=== PATIENT | female | born 1940 | race Caucasian/White ===

== ENCOUNTER 2024-04-14 15:20 | Day surgery (SDC) | payer MEDICARE, SELFPAY ==
[2024-04-14] VITALS (12 sets, daily range): BP systolic 74–135; BP diastolic 33–77; BMI 25.5
--- NOTE | 2024-04-14 15:06 | ED.GENMED ---
History of Present Illness
General
Chief Complaint: Chest Pain
Source: patient and ambulance crew
Exam Limitations: none
Time Seen by Provider: 04/14/24 15:06
History of Present Illness
History of Present Illness:
83-year-old female sudden onset of chest pain upper chest into her neck about 30 minutes prior to ER arrival. Patient does note is slightly worse with breathing. No back pain shearing pain no diaphoresis or nausea. No history of same. Symptoms
are moderate and ongoing in nature. Prehospital EKG was suspicious for a early STEMI. STEMI alert was called. Cardiology invasive was contacted
Review of Systems
Review of Systems
All Other Systems: Not applicable
Constitutional: Denies fever
Respiratory: Denies trouble breathing
Cardiac: Denies syncope
ABD/GI: Denies bloody stools or black stools
Phy Exam
Physical Exam
Physical Exam:
GENERAL: Alert and oriented in no apparent distress
EYE: Orbits normal.
NECK: Supple, no significant adenopathy.
ENT: Pharynx without erythema
CARDIAC: Regular rate and rhythm without any obvious murmurs.
LUNGS: Clear breath sounds,normal
ABDOMEN: Soft, without focal tenderness or distention
NEUROLOGICAL: Alert and oriented , grossly non-focal
SKIN: Warm and dry, no rash or lesion, no discoloration, skin intact.
MUSCULOSKELETAL: No edema,no deformity.Good color
PSYCH: Normal and appropriate interaction.
Scores
Heart Score for Chest Pain Patients
STEMI patient?: Yes
Course
Orders/Labs/Results
Orders:
Orders
04/14/24 Lunch
Cholesterol Lowering
At Your Request: Full Participation
Cholesterol Lowering: Sodium, 2 Gram
04/14/24 14:59
Electrocardiogram (*1) Urgent
Reason for Study: Chest Pain
EKG- Treatment ONCE
04/14/24 Dinner
Cholesterol Lowering
At Your Request: Full Participation
Cholesterol Lowering: Sodium, 2 Gram
04/14/24 15:01
Complete Blood Count/With Diff Urgent
Comprehensive Metabolic Panel Urgent
D-Dimer Urgent
Comment: D-DIMER ADDED ON BY FLOOR 4:30PM 04-14-24
PTT Urgent
Troponin I Urgent
04/14/24 15:27
Aspirin Low Dose EC [Aspir Low (Enteric Coated)] 162 mg .ROUTE .STK-MED ONE
Heparin 5,000 units .ROUTE .STK-MED ONE
Ticagrelor [Brilinta] 180 mg .ROUTE .STK-MED ONE
04/14/24 15:50
Acetaminophen [Tylenol] 650 mg PO Q4HPRN PRN
Activity As Directed
Activity Level: Out of Bed- Ad Nadia
Activity Frequency: Ad Nadia
[facility] Procedure As Directed
Cardiac Cath Procedure: cardiac catheterization
Notify MD As Directed
Notify physician if: immediately for chest pain or bleeding from access site(s)
Radial Artery Hemostasis Method As Directed
Instructions:: 3 mL out at 1 hour post placement of band
3 mL out at 1 1/2 hours post placement of band
3 mL out at 2 hours post placement of band
Off at 2 1/2 hours post placement of band
If any oozing or hemotoma occurs:: re-inflate band and call provider
Site Checks As Directed
Check access site for bleeding/hematoma: Yes
Comment: on arrival, Q15min x4, Q30min x2, Q1 hr x2, Q2 hr x2, Q4 hr or per
protocol
Vascular Checks As Directed
Location: distal to access site - pulse check
Frequency: Other
Comment: on arrival, Q15min x4, Q30min x2, Q1 hr x2, Q2 hr x2, Q4 hr or per protocol
Vital Signs As Directed
Frequency: Other
Additional Instructions:: on arrival, Q15min x4, Q30min x2, Q1 hr x2, Q2 hr x2, then Q4 hr or per unit
protocol
04/14/24 16:00
0.9% Sodium Chloride 1000 ml [Nss] 1,000 ml IV 100 mls/hr
04/14/24 16:01
Electrocardiogram (*1) Routine
Reason for Study: Chest Pain
Comment: dca
04/14/24 16:04
CR Chest - 2 Views Routine
Comment: MD Kareem
Reason For Exam: dyspnea/sob
04/14/24 16:16
Echo 2D MMode Color/Doppler Routine
Reason for Study: Chest pain/ACS
Cardiology Consult: Brooke Serna
04/14/24 16:18
CRP [C-Reactive Protein] Urgent
D-Dimer Urgent
ESR [Erythrocyte Sed Rate] Urgent
04/14/24 16:24
Code Status As Directed
Resuscitation Status: Full Code
CARDIOLOGY CONSULT Routine
Consulting Provider: Brooke Serna
Was physician already notified: Yes
Ondansetron Injectable [Zofran] 4 mg IV Q6HPRN PRN
Oxycodone [Roxicodone] 5 mg PO Q4HPRN PRN
Ot Eval And Treat Routine
Pt Eval And Treat Routine
Activity Level: Ambulate
DX Deep Vein Thrombosis Video Routine
04/14/24 16:33
Change Attending Physician As Directed
Change attending physician to: saundra ramirez
04/14/24 16:34
Add On- LAB Routine
Tests Added?: d-dimer
04/14/24 16:45
Potassium Chloride [KCl] 20 meq PO NOW STA
04/14/24 17:00
Polyethylene Glycol Powder [Miralax] 17 grams PO DAILY
04/14/24 18:00
Enoxaparin Sodium [Lovenox] 40 mg SC QPM
04/14/24 21:00
Troponin I Q6H
04/15/24 03:00
Troponin I Q6H
04/15/24 06:00
Electrocardiogram (*1) IN AM
Reason for Study: Chest Pain
Comment: dca
Basic Metabolic Panel IN AM
Cardiovascular Evaluation IN AM
Complete Blood Count/No Diff IN AM
Glycohemoglobin (HgbA1c) IN AM
Magnesium IN AM
04/15/24 08:00
Metoprolol Xl [Toprol Xl] 50 mg PO DAILY
Abnormal Lab Results
04/14/24 04/14/24
15:01 15:22
WBC 12.7 H 10^3/uL
(4.8-10.8)
RDW 14.8 H %
(11.5-14.5)
Abs Immat Gran (auto) 0.1 H 10^3/uL
(0-0.05)
Absolute Neuts (auto) 10.0 H 10^3/uL
(1.4-6.5)
Absolute Monos (auto) 1.3 H 10^3/uL
(0.1-0.6)
Neutrophils % 78.1 H %
(42.2-75.2)
Lymphocytes % 10.8 L %
(20.5-51.1)
Monocytes % 10.2 H %
(1.7-9.3)
D-Dimer 0.79 H ug/mlFEU
(0.00-0.50)
Chloride 108 H mmol/L
(98-107)
BUN 20 H mg/dl
(7-17)
Glucose 124 H mg/dl
(70-99)
Calcium 8.3 L mg/dl
(8.4-10.2)
Total Protein 5.9 L g/dl
(6.3-8.2)
POC ACT Low Range 236 H Seconds
(116-155)
07/05/24 15:01
04/14/24 15:01
Vital Signs
Initial and Last Documented VS:
Initial Vital Signs
Temp Pulse Resp BP Pulse Ox
99.3 F 83 18 107/77 97
04/14/24 15:06 04/14/24 15:06 04/14/24 15:06 04/14/24 15:06 04/14/24 15:06
Last Documented Vital Signs
Temp Pulse Resp BP Pulse Ox
99.3 F 88 18 124/58 92
04/14/24 15:06 04/14/24 16:45 04/14/24 15:06 04/14/24 16:45 04/14/24 16:45
MDM/Problems Addressed
Differential Diagnosis Includes:
Initial EKG was suspicious for an early inferior AK although no reciprocal changes. Concern was enough to call a prehospital STEMI alert. Upon arrival EKG does show inferior AK. Invasive cardiology was present. Heparin Brilinta were given.
Previously given aspirin. To the [facility] for further evaluation
*Critical Care Note
Total Time (30-74mins, 75-104mins- exclusive of procedures): 10
ED Attending Note
-
Portions of this chart may have been created with voice recognition software.� Occasional wrong word or��sound alike� substitutions may have occurred due to the inherent limitations of voice recognition software.
Discharge Plan
Departure
Patient Disposition: Admit
Date of Disposition: 04/14/24
Time of Disposition: 15:08
Presentation/result/management discussed w/ accepting /DO: Kareem
Discharge Problem:
Probable acute inferior AK
Interventions
Interventions:
*Risk Screen - Suicide Last Done: 04/14/24 17:07
*ED COVID-19 Vaccine History Last Done: 04/14/24 16:57
*Nursing Disposition Last Done: 04/14/24 15:29
ED- Cardiac Assessment Last Done: 04/14/24 15:24
Discharge Date and Time
Discharge Date/Time: 04/14/24 15:30
[2024-04-14 15:09] LABS: % Basophils 0.3 % (0-2); % Eosinophils 0.1 % (0-6); % Immature Granulocytes 0.5 % (0-0.5); % Lymphocytes 10.8 % (20.5-51.1); % Monocytes 10.2 % (1.7-9.3); % Neutrophils 78.1 % (42.2-75.2); Absolute Immature Granulocytes 0.1 10^3/uL (0-0.05); Absolute Lymphocytes 1.4 10^3/uL (1.2-3.4); Absolute Monocytes 1.3 10^3/uL (0.1-0.6); Hematocrit 40.5 % (37.0-47.0); Mean Corp Hgb Conc. 34.6 g/dL (33.0-37.0); Mean Corpuscular Hgb 29.9 pg (27.0-31.0); Mean Corpuscular Volume 86.4 fL (81.0-99.0); Nucleated Red Blood Cells % 0 %; Platelet Count 283 10^3/uL (130-400); Red Blood Cell Count 4.69 10^6/uL (4.20-5.40); Red Cell Dist. Width 14.8 % (11.5-14.5); White Blood Cell Count 12.7 10^3/uL (4.8-10.8)
[2024-04-14 15:19] LABS: APTT 27.4 Sec (23.4-35.0)
[2024-04-14 15:26] LABS: ALT (SGPT) 24 U/L (0-35); AST (SGOT) 28 U/L (14-36); Albumin 3.6 g/dl (3.5-5.0); Alkaline Phosphatase 69 U/L (38-126); Blood Urea Nitrogen 20 mg/dl (7-17); Calcium 8.3 mg/dl (8.4-10.2); Carbon Dioxide 22 mmol/L (22-30); Chloride 108 mmol/L (98-107); Glucose 124 mg/dl (70-99); Potassium 3.5 mmol/L (3.5-5.1); Sodium 138 mmol/L (135-145); Total Bilirubin 0.6 mg/dl (0.2-1.3); Total Protein 5.9 g/dl (6.3-8.2); eGFR > 60.00
[2024-04-14 15:28] LABS: ACT-LR - POC 236 Seconds (116-155)
[2024-04-14 15:34] LABS: Troponin I < 0.012 ng/ml
--- NOTE | 2024-04-14 15:51 | CON.CAR ---
Consultation
Consultation Request
Requesting Provider: Brooke Serna MD
Performing Provider: JERRY Dhaliwal
Reason for Consultation: chest pain
Medical History
-
Chief Complaint: chest pain, dyspnea
History of Present Illness:
83 y/o white female, PMH sig for HTN, untreated HLD, cognitive decline, non specific bowel issues leaning toward constipation.
Non smoker, does not drink alcohol. Lives with however she states they are formerly , yet not .
Called EMS with new acute onset chest pain associated with SOB/dyspnea for over 1 hour. Initial EKG with inferior ST elevations. Given 324mg aspirin as well as 1 SLNTG with mild relief of symptoms. On arrival to ER, she was given brilinta 180mg and
heparin 4000u and brought urgently to the cath laboratory technician.
Past Medical History
Past Medical History: HTN, Hypercholesterolemia and Other (cognitive decline)
Past Surgical History: None
Social History
Tobacco: Non-Smoker
Alcohol: None
Drug: None
Personal: (legally , living together)
Family History
Family History: Reviewed & Not Pertinent
Allergies / Home Medications
Allergy/AdvReac Type Severity Reaction Status Date / Time
No Known Allergies Allergy Verified 04/14/24 15:03
�Medication �Instructions �Recorded �Confirmed �Type
metoprolol succinate 50 mg 50 mg PO DAILY 04/14/24 04/14/24 History
tablet,extended release 24 hr
Review of Systems
-
Unable to obtain full review of systems at this time due to: Acuity
History Source: Patient
All other systems: Negative unless noted
Physical Exam
Vital Signs
Temp Pulse Resp BP Pulse Ox
99.3 F 83 18 107/77 97
04/14/24 15:06 04/14/24 15:06 04/14/24 15:06 04/14/24 15:06 04/14/24 15:06
Lab Results
04/14/24 15:01
04/14/24 15:01
Troponin I < 0.012 ng/ml 04/14/24 15:01
Physical Exam
General: Well Developed, Well Nourished and Other (Deferred d/t urgent nature of cath)
Impression / Plan
-
83 y/o white female, PMH sig for HTN, untreated HLD, cognitive decline, non specific bowel issues leaning toward constipation.
Non smoker, does not drink alcohol. Lives with however she states they are formerly , yet not .
Called EMS with new acute onset chest pain associated with SOB/dyspnea for over 1 hour. Initial EKG with inferior ST elevations. Given 324mg aspirin as well as 1 SLNTG with mild relief of symptoms. On arrival to ER, she was given brilinta 180mg and
heparin 4000u and brought urgently to the cath laboratory technician.
IMPRESSION:
ACS/Chest pain
HTN
HLD
Irritable bowel/constipation
cognitive decline
PLAN:
Urgent cath today
monitor IVU on tele
trend EKG/Troponin to peak
echo in AM
monitor BP, continue metoprolol
check lipid profile in AM
Data Reviewed
-
EKG: Tracing Personally Visualized and interpreted and Discussed with Physician
Labs: Labs Reviewed by me and Discussed with Physician
Old Records: Reviewed
Total Time Spent with Patient (in minutes): 45
--- NOTE | 2024-04-14 16:06 | ITS.CL.CATH ---
[employer] - Catheterization
Cardiac Catheterization
Procedure Report:
LEFT HEART CATHETERIZATION
Date of Procedure: April 14, 2024
Referring: [facility]
PROCEDURES:
1. Left heart catheterization, coronary angiogram.
2. Ultrasound-guided access
INDICATION: Adela is a 83-year-old female with past medical history of hypertension, untreated hyperlipidemia, cognitive decline, nonspecific bowel issues, former smoker who presented to the emergency department with acute substernal chest
discomfort radiating to her neck with the pleuritic nature. At the hospital ST elevation ME was initially called with initial ECG with subtle ST elevations in lead II and aVF without reciprocal changes. Repeat EKG with ST changes in the inferior
leads without meeting clear ST elevation ME criteria, in the setting of ongoing chest discomfort decision was made to bring patient up to the heart catheterization lab to rule out any obstructive CAD. Patient received 324 mg of aspirin as well as 1
sublingual nitroglycerin and route which did not change her symptoms tremendously. In the ED prior to arrival to the heart catheterization lab she was also given 180 mg of Brilinta, and 4000 units of IV unfractionated heparin.
ACCESS: Right radial artery, 6 [place] sheath, and ultrasound-guided
HEMODYNAMICS : (mmHg)
AO (s/d) : 117/52
LV (s/d) : 125/6
LVEDP : 14
CORONARY FINDINGS
DOMINANCE: Right
LEFT MAIN: The left renal artery is a large-caliber short vessel which gives rise to the left into descending artery and the left circumflex artery. Normal coronary artery
LEFT ANTERIOR DESCENDING: The left into descending artery is a medium caliber vessel which gives rise to multiple small diagonal branches which tapers down in the mid to distal portion of the LV with the apex of the LV being supplied by the RPDA.
Normal coronary artery
CIRCUMFLEX: The left circumflex artery is a small caliber vessel which gives rise to 1 major obtuse marginal branch. Normal coronary artery.
RIGHT CORONARY ARTERY: The right coronary artery is a large-caliber, dominant vessel which gives rise to the right posterior descending artery and the right posterolateral system. Normal coronary artery. Of note the RPDA extends and wraps around
the apex
VENTRICULOGRAPHY: In a single plane MEZA projection, left ventricular systolic function is preserved with estimated LVEF of 55 to 60% without obvious wall motion abnormalities.
SEDATION: 30 minutes of procedural sedation was utilized. An independent medical laboratory technician was present to assist with and help manage the patient's level of consciousness and physiologic status.
RADIATION SUMMARY: Fluoro Time (min): 4.5, Dose (mGy): 161.5, DAP (Gy.cm2) : 11.0
Closure Device: Vascular band over right radial artery, 8 cc of air
CONCLUSIONS
1. No obstructive coronary artery disease.
2. In a single plane MEZA projection, left ventricular systolic function is preserved with estimated LVEF of 55 to 60% without obvious wall motion abnormalities.
3. Mildly elevated LVEDP at 14 mmHg.
RECOMMENDATIONS
1. Wean radial band per protocol.
2. Admit to general medicine for workup and management of pleuritic chest pain.
3. Management of cardiovascular risk factors
Brooke Serna MD, FACC, [facility]
--- NOTE | 2024-04-14 16:13 | HPS.HSE ---
Family Physician
-
Family Physician: NO INTERVIEW UNKNOWN
Chief Complaint
-
Chest pain
History of Present Illness
83-year-old female with a past medical history of hypertension, hyperlipidemia, and cognitive impairment presented to the ER earlier this afternoon for chest pain. Prehospital EKG was suspicious for early STEMI. She was seen urgently by invasive
cardiology, the EKG in the hospital did not meet STEMI. However she was having ongoing chest pain, therefore urgent cardiac catheterization was performed.
Currently, she denies chest pain. States she is still coming out of sedation. She is not able to provide any history. She cannot even tell me the name of the facility where she resides.
Medical History
Past Medical History
Past Medical History: Reports HTN, Hypercholesterolemia and Other
Additional Past Medical History:
Cognitive decline
Past Surgical History: Reports Tonsilectomy
Social History
Tobacco: Former Smoker
Alcohol: Occasional
Drug: None
Family History
Family History: Not pertinent
Allergies / Home Medications
Allergies reflects when Allergies were last updated in [facility].
Home Medications with original date entered in [facility]
Allergy/Medication List:
Allergies
Allergy/AdvReac Type Severity Reaction Status Date / Time
No Known Allergies Allergy Verified 04/14/24 15:03
Home Medications Table - record
�Medication �Instructions �Recorded �Confirmed
metoprolol succinate 50 mg 50 mg PO DAILY 04/14/24 04/14/24
tablet,extended release 24 hr
Review of Systems
-
A 12 point ROS was completed and negative except as noted: Yes
Physical Exam
Vital Signs
Vital Signs
Temp Pulse Resp BP Pulse Ox
99.3 F 83 18 107/77 97
04/14/24 15:06 04/14/24 15:06 04/14/24 15:06 04/14/24 15:06 04/14/24 15:06
Physical Exam
General: Well Developed, Well Nourished and No Apparent Distress
HEENT: NormoCephalic, Anicteric, Moist mucous membranes and Atraumatic
Respiratory: Clear
Cardiac: S1/S2
GI: Soft, Non Tender, Non Distended and Normal Bowel Sounds
Musculoskeletal: No Clubbing, No Cyanosis and No Edema
Skin: Warm and Dry
Neuro: Awake and Alert
Psych: Calm
Laboratory Results
-
04/14/24 15:01
04/14/24 15:
Laboratory Results
APTT 27.4 Sec (23.4-35.0) 04/14/24 15:
Total Bilirubin 0.6 mg/dl (0.2-1.3) 04/14/24 15:
AST 28 U/L (14-36) 04/14/24 15:
ALT 24 U/L (0-35) 04/14/24 15:01
Alkaline Phosphatase 69 U/L (38-126) 04/14/24 15:01
Troponin I < 0.012 ng/ml 04/14/24 15:01
Impression/Plan
-
#Chest pain
Currently resolved
Unclear etiology
Urgent cardiac catheterization reportedly negative
Monitor and IVU on telemetry, check echocardiogram
#Constipation
Start laxative
#Benign essential hypertension
Continue metoprolol
#History of hyperlipidemia
Check fasting lipid profile
#Cognitive impairment
No family contacts listed
DVT prophylaxis�subcu Lovenox
Full code
[2024-04-14 17:01] LABS: D-Dimer 0.79 ug/mlFEU (0.00-0.50)
--- NOTE | 2024-04-14 17:06 | CM ---
Addendum entered by MIKAEL Del Valle 04/14/24 17:10:
PCP: Dr. Silva Faustin
Original Note:
CM following for DC planning needs.
Met w/ patient at bedside to complete initial assessment.
Pt. was forgetful and unable to provide much information.
Dtr. in law, Jaci ([phone]) and son, Hitesh ([phone]) presented to the room. They were able to provide collateral info.
Pt. resides at [facility] in a [address] alone. Son had recently moved out and family notes that confusion increased at this time. They noted that patient appears more confused currently than her baseline.
Functionally, patient is quite indep. at baseline without use of any assisted device.
Will follow for needs.
[2024-04-14] MEDS: NSS 1000 IV (17:37)
[2024-04-14] MEDS: KCL 20 MEQ PO (17:41)
--- NOTE | 2024-04-14 18:58 | PTCARENOTE ---
Pt received post procedure at 1635. Pt alert but disoriented to time and place. Denies any chest pain or sob. Right rad band intact and WNL. Assisted oob to the bathroom and to the chair after radial band removed.
[2024-04-14 20:58] LABS: Erythrocyte Sed Rate 14 mm/hour (0-20)
[2024-04-14 21:00] LABS: D-Dimer 0.72 ug/mlFEU (0.00-0.50)
[2024-04-14 21:14] LABS: Troponin I 0.041 ng/ml
[2024-04-14] MEDS: LOVENOX 40 MG SC (22:27)
[2024-04-15 02:16] VITALS: BP 136/56
--- NOTE | 2024-04-15 02:30 | PTCARENOTE ---
Addendum entered by Alisa Shepherd RN 04/15/24 05:04:
Pt continues to have CP w/ deep breaths. Tylenol administered per pt request. Pt appears very anxious. This RN used therapeutic communication to ease pt anxiety.
Original Note:
Pt c/o CP when taking deep breath. POX 95% RA. Ekg obtained. Labs drawn and sent. Pt states she wants to 'hold off' on pain medication. Call lexi w/in reach.
[2024-04-15 03:05] LABS: Hematocrit 37.6 % (37.0-47.0); Hemoglobin 13.3 g/dL (12.0-16.0); Mean Corp Hgb Conc. 35.4 g/dL (33.0-37.0); Mean Corpuscular Hgb 30.4 pg (27.0-31.0); Mean Corpuscular Volume 85.8 fL (81.0-99.0); Mean Platelet Volume 10.5 fL (7.4-10.4); Platelet Count 245 10^3/uL (130-400); Red Blood Cell Count 4.38 10^6/uL (4.20-5.40); White Blood Cell Count 10.3 10^3/uL (4.8-10.8)
[2024-04-15 03:20] LABS: Blood Urea Nitrogen 21 mg/dl (7-17); Calcium 9.2 mg/dl (8.4-10.2); Carbon Dioxide 24 mmol/L (22-30); Chloride 109 mmol/L (98-107); Estimated Creatinine Clearance 41 ml/min; Glucose 108 mg/dl (70-99); HDL Cholesterol 71 mg/dl; LDL Cholesterol, Calculated 105 mg/dl; Magnesium 2.3 mg/dl (1.6-2.3); Potassium 4.1 mmol/L (3.5-5.1); Sodium 140 mmol/L (135-145); Total Cholesterol 188 mg/dl (50-199); Triglyceride 63 mg/dl (10-149); Very Low Density Lipoprotein 12 mg/dl (0-30); eGFR > 60.00
[2024-04-15 03:34] LABS: Troponin I 0.017 ng/ml
[2024-04-15] MEDS: TYLENOL 650 MG PO (04:56)
[2024-04-15 07:39] VITALS: BP 113/48
--- NOTE | 2024-04-15 08:08 | W.PN.HOSP.TC ---
Today's Communication/Plan
-
Discharge today
Assessment / Plan
Assessment / Plan
HPI: 83-year-old female with a past medical history of hypertension, hyperlipidemia, and cognitive impairment presented to the ER earlier this afternoon for chest pain. Prehospital EKG was suspicious for early STEMI. She was seen urgently by
invasive cardiology, the EKG in the hospital did not meet STEMI. However she was having ongoing chest pain, therefore urgent cardiac catheterization was performed.
Echo
CONCLUSIONS
1. Mild left ventricular hypertrophy with small hyperdynamic left ventricle,
EF 75-80%. LVOT gradient not excluded
2. Grossly normal mitral valve with normal left atrium
3. Aortic sclerosis with trace regurgitation
4. Normal right heart with normal pulmonary artery pressure
#Chest pain
Currently resolved
Unclear etiology
Urgent cardiac catheterization 04/14 shows nonobstructive coronary artery disease
CRP elevated, chest CT negative for PE
Medically stable for discharge, follow-up with PCP in 1 week
#Cognitive impairment
Discussed with son, patient has been having memory issues since 2017
She currently resides at [facility], independent living
Son wishes patient to be discharged today
Check head CT, B12, TSH/free T4
Recommend outpatient neuropsychiatric testing
#Constipation
Started miralax, continue upon discharge
#Benign essential hypertension
Continue toprol XL
#History of hyperlipidemia
LDL 105, not on any medications
DVT prophylaxis�subcu Lovenox
Full code
Physical Exam
General: No acute distress
HEENT: Normocephalic, Atraumatic, EOMI, MMM
Respiratory: Clear to Auscultation bilaterally
Cardiac: Normal S1/S2, Regular Rate and Rhythm
GI: Soft, Nontender, Nondistended, Normal Bowel Sounds
Extremities: No Clubbing, Cyanosis, or Edema
Neuro: Nonfocal/Grossly Intact
Psych: Cognitive impairment
Derm: No Visible lesions
Anticipated Discharge: Today
Subjective/Interval History
-
Date of Service: April 15, 2024
No more recurrence of chest pain. No shortness of breath. No fever, no vomiting.
Objective Data
-
Labs:
Laboratory Results
04/15/24
02:20
WBC 10.3
Hgb 13.3
Hct 37.6
Plt Count 245
Sodium 140
Potassium 4.1
Chloride 109 H
Carbon Dioxide 24
BUN 21 H
Creatinine 0.9
Glucose 108 H
Calcium 9.2
Vital Signs:
Vital Signs
Temp Pulse Resp BP Pulse Ox
98.2 F 71 16 136/56 92
04/15/24 07:39 04/15/24 02:45 04/15/24 07:39 04/15/24 02:16 04/15/24 07:39
I&O
04/14/24 04/15/24 04/16/24
06:59 06:59 06:59
Intake Total 200 / 200
Balance 200 / 200
--- NOTE | 2024-04-15 08:19 | W.PN.CARDCBS ---
Addendum entered and electronically signed by Santos Mead MD 04/15/24 10:21:
Patient offers no complaints, has no recollection of chest pain yesterday
PMH: Hypertension hyperlipidemia, IBS, cognitive impairment
PSH: Noncontributory
Allergies none
Outpatient meds: Metoprolol ER 50 mg a day
ROS: Negative except as above
113/48, pulse 72, afebrile, no distress, animated, tangential, head neck exam unremarkable, lungs are clear, very soft systolic murmur left sternal border does not augment with Valsalva carotids okay JVD okay, abdomen benign extremities without
clubbing cyanosis or edema right wrist intact, neuro nonfocal
White count 10.3, hemoglobin 13.3, platelets 245, peak troponin 0.041, CRP is 64.4
Cardiac catheterization: No obstructive CAD
EKG hyperdynamic LV, EF 75-80%, aortic sclerosis
Impression:
Chest pain, etiology undetermined
Hyperdynamic LV
Hypertension
Hyperlipidemia IBS
Cognitive impairment
Elevated CRP
Plan:
Cause of chest pain unclear, however it is striking that she has a hyperdynamic LV and is conceivable that this could contribute to chest discomfort and be associated with microvascular dysfunction/angina/ANOCA. Agree with uptitrating beta-cristopher.
Addition of statin is optional but could be considered in the event that microvascular dysfunction is playing a role in her chest pain
It is interesting that CRP is markedly elevated. Difficult to say whether pericarditis could be playing a role no evidence of pericardial effusion, and currently she is symptom-free.
With cognitive dysfunction and elevated CRP, does she need to be investigated for vasculitis, etc.?
Original Note:
Today's Communication / Plan
-
Increase Toprol XL to 50 mg BID
Impression / Plan
-
PCP: Dr. Silva Faustin
Cardiology: None prior to admission
IMPRESSION:
ACS/Chest pain
No obstructive CAD by cath 04/14/24
Hyperdynamic LV by echo 04/14/24
HTN
HLD
Irritable bowel/constipation
Cognitive decline
Echo 04/14/24: EF 75-80%, LVOT gradient not excluded, grossly normal mitral valve
PLAN:
-Patient came to [facility] with chest pain on 04/14/24 and ECG was concerning for inferior ST elevations prompting urgent cardiac cath that showed no evidence of obstructive CAD. Troponin peaked at 0.041 and will be managed as a nonischemic myocardial
injury Troponin elevation.
-Echo suggests a hyperdynamic LV, but measurement for LVOT gradient not performed.
-Outpatient dose of Toprol XL 50 mg daily has been continued, brief hypotension after cath has resolved and BP prior to morning meds on 04/15/24 is 136/56. Consider increasing dose of Toprol XL to 50 mg BID.
-LDL 105, no indication for statin at age 83 with no evidence of obstructive CAD by cath
-Patient's PCP noted a concern for cognitive decline at office visit 12/28/23, patient did not recall previous well visit 07/2023 and reported that her car had been taken away. No family attended office visit with patient. Family was present in
patient's room on 04/14/24 and reported that patient lives alone in her own independent living apartment. Currently patient does not remember coming to [facility] with chest pain and says that she is disoriented from sleeping so soundly overnight.
HPI: 83 y/o white female, PMH sig for HTN, untreated HLD, cognitive decline, non specific bowel issues leaning toward constipation.
Non smoker, does not drink alcohol. Lives with however she states they are formerly , yet not .
Called EMS with new acute onset chest pain associated with SOB/dyspnea for over 1 hour. Initial EKG with inferior ST elevations. Given 324mg aspirin as well as 1 SLNTG with mild relief of symptoms. On arrival to ER, she was given brilinta 180mg and
heparin 4000u and brought urgently to the microbiological laboratory technician.
Progress Note - Upper Inspector
Subjective
Date of Service: April 15, 2024
No chest pain, also does not recall having chest pain yesterday.
Objective
Labs:
04/15/24 02:20
04/15/24 02:20
Labs
Hgb 13.3 g/dL (12.0-16.0) 04/15/24 02:20
Hct 37.6 % (37.0-47.0) 04/15/24 02:20
Plt Count 245 10^3/uL (130-400) 04/15/24 02:20
APTT 27.4 Sec (23.4-35.0) 04/14/24 15:01
Sodium 140 mmol/L (135-145) 04/15/24 02:20
Potassium 4.1 mmol/L (3.5-5.1) 04/15/24 02:20
BUN 21 mg/dl (7-17) H 04/15/24 02:20
Creatinine 0.9 mg/dL (0.6-1.0) 04/15/24 02:20
Glucose 108 mg/dl (70-99) H 04/15/24 02:20
Troponins
04/14/24 04/14/24 04/14/24
15:01 20:39 21:00
Troponin I < 0.012 0.041 H* D Cancelled
04/15/24
02:20
Troponin I 0.017 D
Vital Signs and I&O:
Vital Signs
Temp Pulse Resp BP Pulse Ox
98.2 F 71 16 136/56 92
04/15/24 07:39 04/15/24 02:45 04/15/24 07:39 04/15/24 02:16 04/15/24 07:39
Vital Signs
Temp Pulse Resp BP Pulse Ox
98.2 F 71 16 136/56 92
04/15/24 07:39 04/15/24 02:45 04/15/24 07:39 04/15/24 02:16 04/15/24 07:39
Intake & Output
04/13/24 04/14/24 04/15/24 04/16/24
06:59 06:59 06:59 06:59
Intake Total 200 / 200
Balance 200 / 200
Physical Exam
Physical Exam
GEN: NAD. AAO to person and place
HEENT: MMM
LUNGS: No audible wheeze
CV: SR on tele
ABD: ND
EXT: No edema B/L
NEURO: Gross non-focal
SKIN: Warm, dry and pink. No rash
[2024-04-15] MEDS: TOPROL XL 50 MG PO (08:56)
[2024-04-15 09:57] VITALS: BP 130/88
[2024-04-15 10:10] VITALS: BP 130/88; PULSE 75
[2024-04-15 11:33] VITALS: BP 123/79
--- NOTE | 2024-04-15 13:44 | W.DCSUMMARY ---
Discharge Summary
Discharge Data
Date of Admission: 04/14/24
Date of Discharge: 04/15/24
-
Pending Results: No
Hospital Course
Discharge diagnosis:
Chest pain of unclear etiology
Cognitive impairment suggestive of dementia
Constipation
Benign essential hypertension
History of hyperlipidemia
Consults: Cardiology
Procedures:
04/14/2024 cardiac catheterization
1. No obstructive coronary artery disease.
2. In a single plane MEZA projection, left ventricular systolic function is preserved with estimated LVEF of 55 to 60% without obvious wall motion abnormalities.
3. Mildly elevated LVEDP at 14 mmHg.
Echo:
1. Mild left ventricular hypertrophy with small hyperdynamic left ventricle,
EF 75-80%. LVOT gradient not excluded
2. Grossly normal mitral valve with normal left atrium
3. Aortic sclerosis with trace regurgitation
4. Normal right heart with normal pulmonary artery pressure
Chest CT:
Motion degradation limits evaluation of the subsegmental segments in the lower lobes. Otherwise, no evidence of pulmonary embolism.
No evidence of pneumonia. Subtle band of opacity in the medial segment of the right middle lobe, atelectasis versus scarring.
Fatty infiltration of liver.
Partial visualization of the breasts, with suggestion of asymmetric fibroglandular tissue. Consider correlation with follow-up nonemergent mammography.
Head CT:
No acute intracranial abnormality.
Hospital course:
83-year-old female with a past medical history of hypertension, hyperlipidemia, and cognitive impairment presented with chest pain. Her prehospital EKG was concerning for possible ST elevation myocardial infarction. Although her hospital EKG did
not suggest ST elevation myocardial infarction, she continued to have chest pain. Patient was seen in conjunction with cardiology. She had urgent cardiac catheterization on the day of admission, showing nonobstructive coronary artery disease.
Patient's chest pain resolved. It is unclear what the etiology of her chest pain is. Her chest CT was negative for pneumonia, negative for pulmonary embolism. She did not have any recurrence of chest pain. She did not have any shortness of
breath. She is on metoprolol succinate 50 mg daily for her hypertension. This was increased to 50 mg twice a day by cardiology.
Discussed with patient's family, patient has been having cognitive impairment since 2017. She has very poor short-term memory, suggestive of dementia. Head CT was negative for acute intracranial abnormality. B12 and TSH were normal. She has been
referred for outpatient neuropsychiatric testing for dementia.
Patient is medically stable for discharge. She needs to follow-up with her primary care doctor in 1 week, and Dr. Adebayo Macias for neuropsychiatric testing.
Disposition: [facility] independent living
Discharge planning: Required 40-minute
Discharge Plan
-
Patient Disposition: Home (Routine Discharge)
Discharge Diagnosis/Procedures: Chest pain of unclear etiology, cognitive impairment suggestive of dementia, prediabetes/glucose intolerance
Condition: Good
Diet: Low Fat, Low Cholesterol and Diabetic, Carb Controlled
Activity: As tolerated
Driving Restrictions: No driving
Activity Restrictions/Additional Instructions:
Please follow-up with Dr. Macias for neuropsychiatric testing to assess for dementia.
Follow-up with cardiology in the office in 3-4 weeks, and your primary care doctor 1 week.
Call to schedule your appointments.
Instructions: Lowering your risk of prediabetes and type 2 diabetes
Stand Alone Forms: DC Instructions- Cath/EP Lab
Referrals:
Adebayo Macias, MEGHANAY [Specified Professional Personl] - in two to three weeks
Silva Faustin MD [Active] - in one week
Brooke Serna MD [Active] - in three to four weeks (The cardiology office will call you on Wednesday to arrange for follow up in the next 3-4 weeks.)
Prescriptions:
New
polyethylene glycol 3350 17 gram/dose powder
17 g PO DAILY Qty: 510 0RF
Changed
metoprolol succinate 50 mg Tablet Extended Release 24 Hr
50 mg PO BID Qty: 60 0RF
Discharge Orders:
Discharge Patient (As Directed); Ordered 04/15/24
Ordered By: Pablo Hicks
Care Plan Goals
Care Plan Goals:
Problem: Readiness for enhanced knowledge related to diagnosis and treatment plan
Goal: Understand your diagnosis and treatment plan needs, including medications if applicable.
Instructions: Know your diagnosis, underlying causes and treatment plan options, including medications if applicable. Consult with your health care team to learn about your diagnosis and treatment plan, including medications if applicable.
Discharge Date and Time
Discharge Date/Time: 04/15/24 16:22
Print Language: BURMESE
[2024-04-15 14:07] LABS: TSH Reflex To Free T4 0.92 uIU/ml (0.47-4.68)
[2024-04-15 15:21] LABS: Vitamin B12 395 pg/ml (239-931)
[2024-04-15 15:38] VITALS: BP 137/57
== END 2024-04-15 16:22 | disposition home or self-care (01) ==
LOC: CATH 15:20
PROVIDERS: Nurse Practitioner; ATTENDING PHYSICIAN Family Medicine; CONSULT PHYSICIAN Internal Medicine Interventional Cardiology; EMERGENCY PHYSICIAN Emergency Medicine
DX: R07.9 Chest pain, unspecified (principal); R94.31 Abnormal electrocardiogram [ECG] [EKG]; I10 Essential (primary) hypertension; E78.00 Pure hypercholesterolemia, unspecified; I70.0 Atherosclerosis of aorta; R41.89 Other symptoms and signs involving cognitive functions and awareness; Z87.891 Personal history of nicotine dependence
CPT/HCPCS: 99152; 99153; C1894; 70450; 71046; 71275; 80048; 80053; 80061; 82607; 83036; 83735; 84443; 84484; 85025; 85027; 85347; 85379; 85652; 85730; 86140; 93005; 93306; 93458; 97116; 97161; 97167; 99285; Q9967